=== PATIENT | male | born 1960 | race Two or more races ===

== ENCOUNTER 2017-04-29 09:47 | Day surgery (SDC) | payer BC ==
[~2017-04-29 09:47] MED LIST: Buffered Lidocaine 0.9% SYRIN* 5 ML/SYR SYRINGE INTRADERM ONE; Bupivacaine 0.5% W/EPI SDV* 10 ML VIAL INJ ONE; EPINEPHrine AMP 1 MG/ML ONE; Famotidine IV* 10 MG/ML 2 ML (20 mg) IV ONE; Metoclopramide TAB* 10 MG PO ONE
[2017-04-29] MEDS ORDERED: ceFAZolin 2 GM PREMIX (*) 50 ML BAG (BBraun bag) IVPB ONE (10:00)
[2017-04-29] MEDS ORDERED: Buffered Lidocaine 0.9% SYRIN* 5 ML/SYR SYRINGE ONE (10:00)
[2017-04-29] MEDS ORDERED: Metoclopramide TAB* 10 MG ONE (10:00)
[2017-04-29] MEDS ORDERED: Famotidine IV* 10 MG/ML 2 ML (20 mg) ONE (10:00)
[2017-04-29] MEDS ORDERED: Lidocaine 2% PF * 5 ML VIAL ONE ×2 (10:46→12:52)
[2017-04-29] MEDS ORDERED: Ketorolac INJ* 30 MG/ML 1 ML VIAL ONE (10:46)
[2017-04-29] MEDS ORDERED: Cisatracurium* 2 MG/ML MDV 5 ML ONE (10:46)
[2017-04-29] MEDS ORDERED: Dexamethasone IV* 4 MG/ML 1 ML (4 MG) ONE (10:46)
[2017-04-29] MEDS ORDERED: fentaNYL* 50 MCG/ML 5 ML VIAL (250 MCG VIAL) ONE (10:46)
[2017-04-29] MEDS ORDERED: Propofol* 10 MG/ML 20 ML BTL IV PUSH ONE (10:46)
[2017-04-29] MEDS ORDERED: Ondansetron INJ* 2 MG/ML VIAL ONE (10:46)
[2017-04-29] MEDS ORDERED: Midazolam* 1 MG/ML 5 ML VIAL (5 MG) ONE (10:47)
[2017-04-29] MEDS ORDERED: KETAMINE HCL* 50 MG/ML 10 ML VIAL ONE (10:47)
[2017-04-29] MEDS ORDERED: ROPIVACAINE 5 MG/ML 30 ML BTL (0.5%) ONE (12:52)
[2017-04-29] MEDS ORDERED: Ondansetron INJ* 2 MG/ML VIAL IV PRN (14:25)
[2017-04-29] MEDS ORDERED: HYDROmorphone* 1 MG/ML 1 ML SYR IV PRN (14:25)
[2017-04-29] MEDS ORDERED: fentaNYL* 50 MCG/ML 2 ML VIAL (100 MCG VIAL) IV PRN (14:25)
[2017-04-29] MEDS ORDERED: oxyCODONE/Acetamin 5/325 MG* TAB PO PRN (14:25)
[2017-04-29] MEDS ORDERED: HYDROmorphone* 1 MG/ML 1 ML SYR ONE (15:54)
[2017-04-29] MEDS ORDERED: Labetalol IV* 5 MG/ML 20 ML VIAL ONE (16:25)
[2017-04-29 18:07] VITALS: BP 145/80
--- NOTE | 2017-05-01 19:18 | OP ---
DATE OF OPERATION: 04/29/17 - [facility] DATE OF : 58 SURGEON: Mp Soto MD. FELTING MACHINE OPERATOR: DESTINY Carpenter. A physician data entry assistant was required through the length of the procedure for positioning and retraction. ANESTHESIOLOGIST: Jayden Chaudhary MD. ANESTHESIA: General anesthesia, regional anesthesia, interscalene block. PRE-OP DIAGNOSES: 1. Right shoulder rotator cuff tear, full thickness, supraspinatus. 2. Right shoulder subacromial impingement. 3. Right shoulder AC joint arthritis. 4. Right shoulder stiffness, capsulitis. 5. Right shoulder possible proximal biceps tendinosis. POST-OP DIAGNOSES: 1. Right shoulder rotator cuff tear, full thickness, supraspinatus. 2. Right shoulder subacromial impingement. 3. Right shoulder AC joint arthritis. 4. Right shoulder stiffness, capsulitis. 5. No right shoulder proximal biceps tendinosis and no superior labral tear. OPERATIVE PROCEDURE: 1. Right shoulder arthroscopic rotator cuff repair, supraspinatus, double row with [id number] stitches for an L-shaped tear. 2. Right shoulder arthroscopic subacromial decompression. 3. Right shoulder arthroscopic distal clavicle resection. 4. Right shoulder limited debridement, rotator interval, arthroscopic. 5. Right shoulder manipulation under anesthesia. ANTIBIOSIS: 2 g Ancef IV. IV FLUIDS: Crystalloid 2000 cc. ESTIMATED BLOOD LOSS: Minimal. SPECIMENS: None. IMPLANTS: 1. Mitek Healix 5.5 mm triple loaded rotator cuff suture anchor x1. Mitek 5.5 mm knotless rotator cuff anchor x1. 2. FiberWire #2 sutures x2. COMPLICATIONS: None. 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 The patient saw his primary care physician and then did physical therapy for 4 weeks. He came to me presenting with significant lateral shoulder pain with activities of daily living. His range of motion had been limited. His forward flexion was 120 degrees, 70 degrees of external rotation, and 20 degrees of internal rotation. He had positive subacromial impingement signs, pain and weakness with supraspinatus stress testing, pain with infraspinatus stress testing. He had tenderness to palpation of the proximal biceps and pain with the Speed's and [place]'s testing. X-rays demonstrated only mild glenohumeral joint space narrowing. They did show severe AC joint space narrowing with small osteophyte of the inferior aspect of either bone adjacent to that joint. It was at a curve to the anterior aspect of the acromion. MRI demonstrated a large full thickness supraspinatus tear with retraction to lateral to the apex of humeral head. MRI also showed a C joint narrowing and osteophytes. It showed what seemed to be some biceps thickening with the possible split in the subscapularis, intralaminar with some medialization of the biceps. Generalized tendinosis of the supra and infraspinatus tendons were noted. The patient responded insufficiently with a nonoperative management and opted for surgery. We spoke about treatment of the full thickness rotator cuff tear as well as bony debridements. I also spoke about manipulating his shoulder given the intense amount of stiffness that was likely secondary to the pain caused by the injury and the rotator cuff tear rather than a primary adhesive capsulitis process. We spoke about evaluating and treating the biceps. The patient had some exam findings and MRI findings concerning for biceps tendinosis proximally or biceps tendon subluxation. However, he did not describe anterior pain about the shoulder only lateral pain. The patient and I spoke about biceps release versus tenodesis on the telephone as well as in clinic. Because the patient's preference more being not to meet treating the biceps, but if treatment were needed he would prefer a tenodesis. We discussed risks and potential complications of procedure including bleeding, infection, nerve or blood vessel injury, rotator cuff repair, shoulder stiffness , need for acute surgery to address the biceps tendon if not addressed currently. DESCRIPTION OF PROCEDURE: Preoperative written consent was obtained. Operative extremity was marked in preoperative holding. The patient had a regional interscalene block performed by Dr. Chaudhary. The patient was then taken back to the operating room and placed supine on the operating room table. The patient was sedated and intubated. Prior to placing the patient in a lateral decubitus position, I performed the manipulation under anesthesia. A mini-surgical time-out was performed prior to this being done. The patient's initial passive range of motion of the right shoulder was significantly limited. It was comparable to that in the office, 120 degrees of forward flexion, 70 degrees of external, and 20 degrees of internal range of motion. I safely performed a manipulation under anesthesia, holding the shoulder girdle and the proximal humerus as close to the joint as possible. The manipulation produced significant improvement of range of motion and palpable and audible crackling consistent with likely breaking up of scar tissue and capsule. The improvements in range of motion and the palpable crackling were quite prominent and significant. Of the ranges of response to manipulation under anesthesia, this was certainly impressive. At the end of the manipulation under anesthesia, the patient's forward flexion was approximately 170 degrees and the patient had approximately 90 degrees of external rotation and 70 degrees of internal rotation with the shoulder abductor. The patient was placed in a lateral decubitus position with the right upper extremity and 15 pounds of traction. A chest roll was placed. Gibbs bag was insufflated, all bony prominences were padded. The right shoulder was then prepped and draped. Surgical time-out was performed. A spinal needle was placed from posterior into the right glenohumeral joint. A 30 mL of normal saline were infused. A posterior glenohumeral joint portal was then established using standard technique. With the arthroscope in posterior portal, a diagnostic arthroscopy was commenced. The full thickness supraspinatus rotator cuff tear was appreciated clearly. No articular cartilage lesions of the humeral head or glenoid were appreciated. The biceps tendon appeared pristine. There was no visible subluxation into any significant subscapularis laminar tear. I evaluated the subscapularis with the humerus translated posteriorly and externally rotated and there was no significant tear of it. I established an anterior glenohumeral joint portal under direct visualization. I introduced an arthroscopic shaver. I debrided a quantity of inflamed tissue in the rotator interval. This allowed better visualization of the subscapularis tendon to confirm lack of tear. I pulled the biceps into the joint to confirm no biceps tendon tear or tendinosis. I lifted up the superior labrum with the arthroscopic shaver and with an arthroscopic probe and there was almost no lift off and no clear tear. There were some red lines about the anchor of the biceps tendon, but no clear fraying or tendinosis. Therefore, I decided the biceps did not need to be treated. Looking at the capsule peripheral to the labrum circumferentially, there was some clear red, inflamed tissue, consistent with tissue having been broken up with the manipulation under anesthesia. All instruments and fluid were removed from the glenohumeral joint. I then entered the subacromial space, from posterior with a metal trocar and cannula and from anterior with a 7 mm Mitek plastic cannula. I applied the irrigation anteriorly to the Mitek plastic cannula and then entered my arthroscope posteriorly. A lateral subacromial portal was then established under direct visualization. I entered my arthroscopic shaver from lateral and debrided a significant amount of bursa and subacromial space. This included clearing out the gutters and a significant amount of tissue superior to the rotator cuff tendon and muscle. A visualization was excellent. Vapor cautery device was entered from lateral and used to debride the undersurface of the acromion. Significant spurring about the lateral and anterior aspect of the acromion was appreciated. I visualized the tear in the supraspinatus tendon, although the geometry of the tear was not well visualized from posterior. I created my standard posterolateral portal and visualized the tear through that. Still it was difficult to get a perfect view of that. Therefore, I viewed through the lateral, straight lateral portal of the tear. I also created an antonia-lateral portal to perform work, arthroscopic debridement and suture management later off during the case. Visualizing the tear from the posterolateral and lateral portals and debriding the tendon and with an arthroscopic shaver through the lateral and anterolateral portals, I was able to appreciate better the geometry of the tear. I also used a grasper to help determine how the torn tissue wanted to lie down. It appeared as though there was an L-shaped tear in the rotator cuff tissue. There was a longitudinal tear posteriorly and then a transverse tear across the footprint, more anteriorly. After having determined well the geometry of the rotator cuff tear, I then proceeded to do my subacromial decompression. I returned my scope to the posterior portal and placed an arthroscopic aaron through the straight lateral portal. I debrided approximately 5 to 6 mm of anterior and anterolateral acromion. I was satisfied with the improved space, subacromially. Also through this visualized well the AC joint. I repositioned my arthroscope into the posterolateral portal and prepared the rotator cuff footprint with the arthroscopic aaron through the lateral portal. This would improve tendon to bone healing. I next created a superolateral portal under direct visualization, larger and placed my suture anchor through that incision, triple loaded. I placed this at the medial edge of the rotator cuff footprint. I then placed 3 horizontal mattress stitches in the distal end of the supraspinatus rotator cuff tendon, using a Gene suture passer, with visualization done from lateral and all passes with the Gene passer done from anterior. Once all sutures had been placed through the tendon, I then tied the 3 knots. I then addressed the longitudinal split in the rotator cuff tear. I did so with 2 side to side stitches. These were performed using Gene suture passer with the Gene metal wire replaced with a FiberWire #2 suture. This was performed twice. I confirmed the adequacy of my rotator cuff repair with an arthroscopic probe both arms of the L-shaped tear. Then, to improve the area of tendon to bone healing, I decided to place a second row anchor laterally, knotless. I used 4 sutures from the medial row and punched a hole about the lateral aspect of the rotator cuff footprint through the superolateral portal and then placed a knotless suture anchor 5.5 mm with 4 sutures through it from the medial row. This brought the tendon down very nicely to bone. I was very comfortable with my repair stability with rotation of the humerus and with probing. I then visualized from posterior and debrided about the acromioclavicular joint with a vapor device and arthroscopic shaver. I next moved my arthroscopic vapor followed by shaver followed by aaron to the anterior portal and debrided small amount of osteophyte off the acromion adjacent to the joint, but then debrided the distal end of the clavicle as well using the arthroscopic aaron. Instruments and fluid were removed from the subacromial space. The skin incisions were closed with [id number] stitches using nylon 4.0 suture, Xeroform, 4x4s, ABDs, foam tape, cooling unit, sling with abduction pillow. The patient was awakened and transferred into a supine position. DISPOSITION: The patient will remain in the sling. He will follow up with me in 10 to 14 days postoperatively. He will take Percocet for pain control. He will move his wrist and elbow several times a day out of the sling to prevent stiffness. I will start the patient in physical therapy early, starting next week to prevent the shoulder from stiffening again. [id number] #: [id number] MAGI
== END 2017-04-29 18:45 | disposition home or self-care (01) ==
LOC: OR 09:47
PROVIDERS: ATTEND Orthopaedic Surgery
DX: S46.011A Strain of muscle(s) and tendon(s) of the rotator cuff of right shoulder, initial encounter (principal); M75.41 Impingement syndrome of right shoulder; M19.011 Primary osteoarthritis, right shoulder; M75.01 Adhesive capsulitis of right shoulder; W19.XXXA Unspecified fall, initial encounter; Y92.9 Unspecified place or not applicable
CPT/HCPCS: A9270-GY; J0171; J0690; J1100; J1170; J1885; J2250; J2405; J2704; J2795; J3010